=== PATIENT | female | born 1960 | race Caucasian/White ===

== ENCOUNTER 2020-06-08 09:44 | Emergency (ER) | payer OTHER ==
[~2020-06-08] VITALS: Ht 167.6 cm; Wt 53.4 kg
[2020-06-08 09:45] VITALS: BP 113/76
== END 2020-06-08 10:20 | disposition home or self-care (01) ==
LOC: ER 09:45
DX: S06.0X0A Concussion without loss of consciousness, initial encounter (principal); R11.0 Nausea; R51 Headache; M54.2 Cervicalgia; G89.29 Other chronic pain; Z88.8 Allergy status to other drugs, medicaments and biological substances; Z88.5 Allergy status to narcotic agent; W18.39XA Other fall on same level, initial encounter; Y93.89 Activity, other specified; Y92.89 Other specified places as the place of occurrence of the external cause; Y99.8 Other external cause status
CPT/HCPCS: 99284

== ENCOUNTER 2021-01-11 13:05 | Emergency (ER) | payer OTHER ==
[~2021-01-11] VITALS: Ht 167.6 cm; Wt 56.8 kg
[2021-01-11 13:18] VITALS: BP 126/81
[2021-01-11] MEDS ORDERED: heparin 25,000 UNIT/250ml bag 250 ML IV SCH (14:40)
[2021-01-11] MEDS ORDERED: heparin 10,000 units/1 ML INJ IV ONE ×2 (14:40→15:00)
[2021-01-11] MEDS ORDERED: nitroGLYCERIN 0.4mg SUBLingual tab SL PRN (14:40)
[2021-01-11] MEDS ORDERED: heparin 10,000 units/1 ML INJ IV PRN (14:40)
--- NOTE | 2021-01-11 15:26 | NUR ---
seen, assessed and discharge by Dr. nuñez.
== END 2021-01-11 15:27 | disposition home or self-care (01) ==
LOC: ER 13:06
DX: M79.601 Pain in right arm (principal); G89.29 Other chronic pain; E07.9 Disorder of thyroid, unspecified; G56.00 Carpal tunnel syndrome, unspecified upper limb; Z88.6 Allergy status to analgesic agent; Z88.8 Allergy status to other drugs, medicaments and biological substances
CPT/HCPCS: 99282

== ENCOUNTER 2021-11-09 11:50 | Emergency (ER) | payer OTHER ==
[~2021-11-09] VITALS: Ht 167.6 cm; Wt 55.0 kg
[2021-11-09 12:16] LABS: BASOPHILS % (AUTO) 0.7 % (0-1); EOSINOPHILS # (AUTO) 0.1 X10'3 (0-0.9); EOSINOPHILS % (AUTO) 1.6 % (0-6); HEMATOCRIT 43.4 % (35.0-45.0); HEMOGLOBIN 14.4 g/dl (12.0-16.0); LYMPHOCYTES # (AUTO) 1.4 X10'3 (1.1-4.8); LYMPHOCYTES % (AUTO) 26.7 % (21-51); MEAN CORPUSCULAR HEMOGLOBIN 29.2 PG (27.0-31.0); MEAN CORPUSCULAR HGB CONC 33.3 g/dL (33.0-36.5); MEAN CORPUSCULAR VOLUME 87.7 FL (78-98); MEAN PLATELET VOLUME 8.2 FL (7.4-10.4); MONOCYTES # (AUTO) 0.4 X10'3 (0-0.9); MONOCYTES % (AUTO) 8.1 % (2-12); NEUTROPHILS # (AUTO) 3.2 X10'3 (1.8-7.7); NEUTROPHILS % (AUTO) 62.9 % (42-75); PLATELET COUNT 175 X10'3 (140-440); RED BLOOD COUNT 4.94 X10'6 (4.20-5.60); RED CELL DISTRIBUTION WIDTH 13.6 % (11.5-14.5); WHITE BLOOD COUNT 5.1 X10'3 (4.5-11.0)
[2021-11-09 12:20] LABS: CLARITY,URINE CLEAR (Clear); GLUCOSE, URINE NEGATIVE (Neg); KETONES,URINE NEGATIVE (Neg); LEUKOCYTE ESTERASE ,URINE SMALL (Neg); NITRITES, URINE NEGATIVE (Neg); OCCULT BLOOD,URINE SMALL (Neg); PROTEIN,URINE NEGATIVE (Neg); UROBILINOGEN,URINE 0.2 E.U/dL (0.2-1.0)
[2021-11-09 12:26] LABS: COLOR,URINE STRAW (Yellow); UA COLLECTION TYPE CLN CATCH MIDSTREAM
[2021-11-09 12:27] LABS: BACTERIA,URINE 2+ /HPF (Neg); MUCUS STRANDS NONE SEEN /LPF (Neg); RBC,URINE 0-2 /HPF (0-2); SQUAMOUS EPITHELIAL CELL,UR FEW /LPF (FEW)
[2021-11-09 12:28] LABS: WBC CLUMPS,URINE FEW /HPF (NEGATIVE)
[2021-11-09 12:29] LABS: ALANINE AMINOTRANSFERASE 42 U/L (12-78); ALBUMIN/GLOBULIN RATIO 1.3 (1.1-1.5); ALKALINE PHOSPHATASE 75 IU/L (46-116); ANION GAP 7 (8-16); ASPARTATE AMINO TRANSFERASE 23 U/L (10-37); BILIRUBIN,TOTAL 1.2 MG/DL (0.1-1.0); BLOOD UREA NITROGEN 15 MG/DL (7-18); BUN/CREATININE RATIO 16.1 (6.6-38.0); CALCIUM 9.5 MG/DL (8.5-10.1); CHLORIDE 105 MMOL/L (99-107); CREATININE 0.93 MG/DL (0.40-0.90); GLUCOSE 98 MG/DL (70-104); POTASSIUM 4.1 MMOL/L (3.5-5.1); SODIUM 142 MMOL/L (135-145); TOTAL CARBON DIOXIDE 29.9 MMOL/L (24-32); TOTAL PROTEIN 7.2 G/DL (6.4-8.2); eGFR 61 ML/MIN
[2021-11-09] MEDS ORDERED: CIPR-20 PO (13:48)
[2021-11-09] MEDS ORDERED: ciprofloxacin 250mg tablet PO ONE (13:50)
--- NOTE | 2021-11-09 13:57 | NUR ---
Cipro tablets not available in hospital, pt. will fill Rx today after discharge and take first dose today.
[2021-11-09 13:58] VITALS: BP 123/88
== END 2021-11-09 13:54 | disposition home or self-care (01) ==
LOC: ER 11:50
DX: N10 Acute pyelonephritis (principal); N20.0 Calculus of kidney; R10.84 Generalized abdominal pain; R30.0 Dysuria; R11.0 Nausea; G89.29 Other chronic pain; Z88.8 Allergy status to other drugs, medicaments and biological substances; Z88.5 Allergy status to narcotic agent; Z79.2 Long term (current) use of antibiotics
CPT/HCPCS: 36415; 74176; 80053; 81001; 85025; 87077; 87088; 87186; 99284